=== PATIENT | male | born 1995 | race Caucasian/White ===

== ENCOUNTER 2025-01-23 07:12 | Day surgery (SDC) | payer OTHER ==
[~2025-01-23] VITALS: Ht 177.8 cm; Wt 26.8 kg
[2025-01-23] MEDS ORDERED: Lactated Ringer's 1,000 ML IV ONE ×2 (07:37→08:30)
[2025-01-23] MEDS ORDERED: propofoL 50 ML IV ONE (07:37)
== END 2025-01-23 09:31 | disposition home or self-care (01) ==
LOC: ORSCSDS 07:12
PROVIDERS: Surgery
PROC: 0DJD8ZZ Inspection of Lower Intestinal Tract, Via Natural or Artificial Opening Endoscopic (ICD-10-PCS; principal; 2025-01-23 08:45)
DX: Z12.11 Encounter for screening for malignant neoplasm of colon (principal); Z86.0109 Personal history of other colon polyps; F17.210 Nicotine dependence, cigarettes, uncomplicated; F84.0 Autistic disorder; F31.9 Bipolar disorder, unspecified; I10 Essential (primary) hypertension
CPT/HCPCS: J2704; J7120